=== PATIENT | male | born 1950 | race Caucasian/White ===

== ENCOUNTER 2022-05-12 07:37 | Day surgery (SDC) | payer MEDICARE, OTHER ==
[2022-05-12] MEDS ORDERED: Propofol 200 MG/20 ML SDV IV ONE (07:38)
[2022-05-12] MEDS ORDERED: Lactated Ringers 1,000 ML IV SCH (07:45)
[2022-05-12] MEDS ORDERED: Sodium Chloride 0.9% 10 ML Syringe FLUSH PRN (07:45)
[2022-05-12 10:03] VITALS: BP 125/78; PULSE 71
== END 2022-05-12 09:55 | disposition home or self-care (01) ==
LOC: FB.SDS 07:37
PROVIDERS: ATTEND Surgery
DX: Z12.11 Encounter for screening for malignant neoplasm of colon (principal); K62.1 Rectal polyp; K57.30 Diverticulosis of large intestine without perforation or abscess without bleeding; K40.90 Unilateral inguinal hernia, without obstruction or gangrene, not specified as recurrent; E78.00 Pure hypercholesterolemia, unspecified; F17.210 Nicotine dependence, cigarettes, uncomplicated; E03.9 Hypothyroidism, unspecified; Z80.0 Family history of malignant neoplasm of digestive organs; Z79.899 Other long term (current) drug therapy; Z98.890 Other specified postprocedural states
CPT/HCPCS: 00811; 45384; 45385; 88305; J2704; J7120

== ENCOUNTER 2024-05-14 06:55 | Emergency (ER) | payer MEDICARE ==
[2024-05-14 07:13] VITALS: BP 137/59; PULSE 62
== END 2024-05-14 08:13 | disposition home or self-care (01) ==
LOC: FB.ED 06:55
DX: S46.812A Strain of other muscles, fascia and tendons at shoulder and upper arm level, left arm, initial encounter (principal); E78.00 Pure hypercholesterolemia, unspecified; F17.210 Nicotine dependence, cigarettes, uncomplicated; Z79.899 Other long term (current) drug therapy; X58.XXXA Exposure to other specified factors, initial encounter
CPT/HCPCS: 99283